=== PATIENT | male | born 1970 | race Caucasian/White ===

== ENCOUNTER 2016-11-17 14:32 | Observation (INO) ==
[2016-11-17] MEDS ORDERED: Ipratropium/Albuterol Neb 3 ML IH ONE ×2 (14:46→18:15)
[2016-11-17] MEDS ORDERED: Albuterol 2.5 MG/3 ML NEBULIZER IH ONE ×2 (14:46→18:15)
--- NOTE | 2016-11-17 14:50 | Emergency Department Note ---
Disposition Clinical Impression: COPD exacerbation Disposition: Admitted As Inpatient Condition: Good Referrals: NO,PCP [Non-Partnered Physician] - Forms: ED Satisfaction Letter Time of Disposition: 18:18 SOB HPI - General Chief Complaint: ED Shortness of Breath/Dyspnea Stated Complaint: chest tightness, can't breathe Time Seen by Provider: 11/17/16 14:40 Source: patient, other Mode of arrival: ambulatory Limitations: no limitations Nursing Notes Reviewed: Yes Vital Signs Reviewed: Yes - History of Present Illness 46-year-old white male who presents complaining of increased difficulty breathing. He states he has been having trouble for more than a month. He states he saw his physician about a month ago. He states 3 weeks ago his physician calling in a Z-Charles. He states he continues to cough. His cough is productive of white to greenish sputum. He intermittently has fever and chills , although he has not documented an elevated temperature. He denies chest pain. He has had persistent wheezing and shortness of breath, worse with exertion. His last nebulizer treatment was at 5:30 this morning. He does wear home oxygen at 3 L. He does continue to smoke. Pt Subjective Complaint: shortness of breath, cough Onset (ago): week(s) (4 weeks, worse for the last 3 weeks.) Context: recent illness Severity: moderate Consistency/Duration: constant Improves with: oxygen, rest, bronchodilators Worsens with: exertion, coughing Known history of: COPD Associated symptoms: Reports: fever (Subjective) Treatment prior to arrival: oxygen, bronchodilator Cough present: Yes Cough Description: Involuntary Cough Frequency: Intermittent Sputum production: Yes Sputum Color: White, Green - Related Data Home oxygen amount: 3 liters Home Medications Medication Instructions Recorded Confirmed Albuterol Neb [Proventil Neb] 2.5 mg IH Q4HR 06/12/15 11/17/16 Hydrocodon-Acetamin 7.5-325/15 1 tab PO TID 11/17/16 11/17/16 Losartan [Cozaar] 25 mg PO DAILY 11/17/16 11/17/16 Previous Rx's Medication Instructions Recorded Albuterol Sulfate [Proair 90 mcg IH Q4H PRN #1 aer.pow.ba 06/14/15 Respiclick] Alprazolam [Xanax] 0.5 mg PO BID PRN #20 tablet 06/14/15 Budesonide/Formoterol 160/4.5 2 puff IH BIDR 30 Days 06/14/15 [Symbicort] Allergies Allergy/AdvReac Type Severity Reaction Status Date / Time Penicillins Allergy unsure Verified 06/12/15 17:30 venom-honey bee Allergy Difficulty Verified 06/12/15 17:30 [bee venom (honey bee)] Breathing All systems ED: reviewed and negative except as stated. Constitutional: Reports: fever (Subjective), chills Eyes: Denies: eye discharge ENT ED: Reports: ear pain (Left). Denies: throat pain Cardiovascular: Denies: chest pain, palpitations Respiratory: Reports: cough, dyspnea, wheezes, sputum production Gastrointestinal: Denies: abdominal pain, nausea, vomiting, diarrhea Musculoskeletal: Denies: back pain Integumentary: Denies: rash Past Medical History - Past Medical History Medical history: Reports: asthma, COPD, hypertension, other Surgical history: Reports: appendectomy Psychiatric history: Reports: anxiety - Social History Smoking Status: Current every day smoker Smokeless Tobacco Status: Yes (chew) Alcohol use: Reports: occasionally Drug use: Reports: none Physical Exam - General Limitations: no limitations General appearance: alert, in distress (Mildly dyspneic) - Head Head exam: atraumatic, normocephalic - Eye Eye exam: Present: PERRL, EOMI. Absent: scleral icterus, conjunctival injection - ENT ENT exam: normal oropharynx, mucous membranes moist, other (Right TM is normal. Left TM is retracted and dull, not significantly red.) - Neck Neck exam: Present: normal inspection, full ROM, trachea midline. Absent: tenderness, lymphadenopathy - Chest Chest inspection: Present: normal inspection, symmetric chest wall rise - Respiratory Respiratory exam: Present: respiratory distress, wheezes (Mildly dyspneic moderate bilateral expiratory), prolonged expiratory phase, other (Decreased breath sounds in the bases bilaterally) - Cardiovascular Cardiovascular exam: Present: regular rate, normal rhythm, normal heart sounds - Abdominal Exam Abdominal exam: Present: soft, Non-Tender - Extremities Exam Extremities exam: Present: normal inspection, full ROM, normal capillary refill. Absent: pedal edema, calf tenderness - Neurological Exam Neurological exam: Present: alert, oriented X3, normal gait. Absent: motor sensory deficit - Psychiatric Psychiatric exam: Present: agitated - Skin Skin exam: Present: warm, dry, intact. Absent: cyanosis, diaphoresis Course - Reevaluation(s) Reevaluation #1: Patient states he feels slightly better. His exam is unchanged, moderate bilateral expiratory wheezing. He is maintaining O2 sats of 88-90% on 2 L. Time: 18:00 Reevaluation #2: Discussed with Dr. Quesada. He will admit. Time: 18:17 Vital Signs Temperature 98.7 F 11/17/16 14:34 Pulse Rate 93 11/17/16 14:34 Respiratory Rate 22 11/17/16 14:34 Blood Pressure 113/89 11/17/16 14:34 O2 Sat by Pulse Oximetry 72 L 11/17/16 14:34 Temperature 98.7 F 11/17/16 14:34 Pulse Rate 82 11/17/16 18:22 Respiratory Rate 28 11/17/16 18:22 Blood Pressure 162/104 11/17/16 18:22 O2 Sat by Pulse Oximetry 2 L 11/17/16 18:22 Oxygen Delivery Oxygen Delivery Nasal Cannula Shortness of Breath/Dyspnea - [facility] Narrative Medical decision making narrative: The primary issue is COPD exacerbation. There is no radiographic evidence of pneumonia. He does have some prominent pulmonary vasculature with an elevated BNP, I cannot rule out the possibility of a superimposed congestive heart failure. His EKG is unchanged from his previous EKG. His troponin is minimally elevated, but the repeat troponin is unchanged. He is not having chest pain. He has been having the same ongoing symptoms for at least 4 weeks. - Differential Diagnosis Likely: acute exacerbation of chronic obstructive airways disease, congestive heart failure, pneumonia, asthma with exacerbation, pulmonary embolism, pneumothorax, arrhythmia - Lab Data Result diagrams: 11/17/16 15:02 11/17/16 15:02 Lab Results 11/17/16 11/17/16 11/17/16 Range/Units 15:02 15:02 15:02 WBC 14.7 H (4.3-11.1) K/mcL RBC 4.98 (4.19-5.50) M/mcL Hgb 16.3 (12.9-16.9) g/dL Hct 49.1 (37.5-50.1) % MCV 98.6 (83.0-100.0) fL MCH 32.7 (28.0-33.3) pg MCHC 33.2 (31.6-35.5) g/dL RDW 14.9 H (11.5-14.5) % Plt Count 294 (140-400) K/mcL MPV 10.1 (9.4-12.4) fL Immature Gran % 0.8 (0-4) % Seg Neutrophils % 71.9 % Lymphocytes % 20.0 % Monocytes % 6.3 % Eosinophils % 0.5 % Basophils % 0.5 % Neutrophils # 10.6 H (1.6-8.9) K/mcL Lymphocytes # 2.9 (0.6-4.6) K/mcL Monocytes # 0.9 (0.0-1.3) K/mcL Eosinophils # 0.1 (0.0-0.6) K/mcL Basophils # 0.1 (0.0-0.2) K/mcL Platelet Estimate Normal (Normal) Sodium 129 L (136-145) mEq/L Potassium 4.9 H (3.5-4.5) mEq/L Chloride 88 L (98-109) mEq/L Carbon Dioxide 30 H (19-29) mEq/L BUN 9 (8-26) mg/dL Creatinine 0.82 (0.72-1.25) mg/dL Est GFR ( Amer) > 60 (> 60) Est GFR (Non-Af Amer) > 60 (> 60) BUN/Creatinine Ratio 11 (6-26) Glucose 106 H (70-99) mg/dL Calculated Osmolality 267 L (280-300) Calcium 8.9 (8.6-10.8) mg/dL Total Bilirubin 0.4 (0.2-1.2) mg/dL AST 30 (5-34) Units/L ALT 22 (0-55) Units/L Alkaline Phosphatase 70 (38-126) Units/L Troponin I 0.04 H* (0-0.03) ng/mL B-Natriuretic Peptide (0-100) pg/mL Serum Total Protein 6.6 (6.0-8.3) g/dL Albumin 3.1 L (3.5-5.0) g/dL Globulin 3.5 (2.4-3.5) g/dL Albumin/Globulin Ratio 0.9 L (1.1-2.2) 11/17/16 11/17/16 Range/Units 15:02 16:05 WBC (4.3-11.1) K/mcL RBC (4.19-5.50) M/mcL Hgb (12.9-16.9) g/dL Hct (37.5-50.1) % MCV (83.0-100.0) fL MCH (28.0-33.3) pg MCHC (31.6-35.5) g/dL RDW (11.5-14.5) % Plt Count (140-400) K/mcL MPV (9.4-12.4) fL Immature Gran % (0-4) % Seg Neutrophils % % Lymphocytes % % Monocytes % % Eosinophils % % Basophils % % Neutrophils # (1.6-8.9) K/mcL Lymphocytes # (0.6-4.6) K/mcL Monocytes # (0.0-1.3) K/mcL Eosinophils # (0.0-0.6) K/mcL Basophils # (0.0-0.2) K/mcL Platelet Estimate (Normal) Sodium (136-145) mEq/L Potassium (3.5-4.5) mEq/L Chloride (98-109) mEq/L Carbon Dioxide (19-29) mEq/L BUN (8-26) mg/dL Creatinine (0.72-1.25) mg/dL Est GFR ( Amer) (> 60) Est GFR (Non-Af Amer) (> 60) BUN/Creatinine Ratio (6-26) Glucose (70-99) mg/dL Calculated Osmolality (280-300) Calcium (8.6-10.8) mg/dL Total Bilirubin (0.2-1.2) mg/dL AST (5-34) Units/L ALT (0-55) Units/L Alkaline Phosphatase (38-126) Units/L Troponin I 0.04 H* (0-0.03) ng/mL B-Natriuretic Peptide 1215 H (0-100) pg/mL Serum Total Protein (6.0-8.3) g/dL Albumin (3.5-5.0) g/dL Globulin (2.4-3.5) g/dL Albumin/Globulin Ratio (1.1-2.2) - EKG Data EKG attestation: Yes I reviewed and interpreted this EKG. EKG results narrative: Sinus rhythm, rate of 93, left atrial enlargement, right ventricular hypertrophy. Nonspecific ST-T changes. Rhythm strip shows sinus rhythm with a rate of 93, CA interval 138 ms, a QRS of 93 ms with no other act as interpreted by me. This is compared to a tracing dated 06/12/15, no significant change. Critical Care Time Critical Care Time: Yes Total Critical Care Time: 30 Attestation: Critical care time includes my initial evaluation, reevaluation, review of laboratory, EKG, x-ray. It includes consultation with the hospital, reviewing writing admitting orders.
[2016-11-17 15:13] LABS: Basophils # 0.1 K/mcL (0.0-0.2); Basophils % 0.5 %; Eosinophils # 0.1 K/mcL (0.0-0.6); Eosinophils % 0.5 %; Hematocrit 49.1 % (37.5-50.1); Hemoglobin 16.3 g/dL (12.9-16.9); Immature Granulocytes % 0.8 % (0-4); Lymphocytes # 2.9 K/mcL (0.6-4.6); Mean Corpuscular HGB Conc 33.2 g/dL (31.6-35.5); Mean Corpuscular Hemoglobin 32.7 pg (28.0-33.3); Mean Corpuscular Volume 98.6 fL (83.0-100.0); Mean Platelet Volume 10.1 fL (9.4-12.4); Monocytes # 0.9 K/mcL (0.0-1.3); Monocytes % 6.3 %; Neutrophils # 10.6 K/mcL (1.6-8.9); Platelet Count 294 K/mcL (140-400); Red Blood Count 4.98 M/mcL (4.19-5.50); Red Cell Distribution Width 14.9 % (11.5-14.5); Segmented Neutrophils % 71.9 %
[2016-11-17 15:36] LABS: Alanine Aminotransferase 22 Units/L (0-55); Albumin 3.1 g/dL (3.5-5.0); Albumin/Globulin Ratio 0.9 (1.1-2.2); Alkaline Phosphatase 70 Units/L (38-126); Aspartate Amino Transferase 30 Units/L (5-34); BUN/Creatinine Ratio 11 (6-26); Bilirubin,Total 0.4 mg/dL (0.2-1.2); Blood Urea Nitrogen 9 mg/dL (8-26); Calcium 8.9 mg/dL (8.6-10.8); Carbon Dioxide 30 mEq/L (19-29); Chloride 88 mEq/L (98-109); Globulin 3.5 g/dL (2.4-3.5); Glucose 106 mg/dL (70-99); Osmolality,Calculated 267 (280-300); Potassium 4.9 mEq/L (3.5-4.5); Sodium 129 mEq/L (136-145); Total Protein 6.6 g/dL (6.0-8.3); eGFR For African Americans > 60 (> 60); eGFR For Non-African Americans > 60 (> 60)
[2016-11-17 15:44] LABS: Platelet Estimate Normal (Normal)
[2016-11-17] MEDS ORDERED: Furosemide 40 MG/4 ML VIAL IVP ONE (18:15)
[2016-11-17] MEDS ORDERED: Naloxone 0.4 MG/ML INJ IVP PRN (18:46)
[2016-11-17] MEDS ORDERED: Acetaminophen 325 MG TABLET PO PRN (18:46)
[2016-11-17] MEDS ORDERED: MethylPREDNISolone 40 MG/ML VIAL IVP SCH (18:46)
[2016-11-17] MEDS: Ipratropium/Albuterol Neb 3 ML IH SCH (20:20)
[2016-11-17] MEDS: *HR* HYDROcodone/Acet 7.5/325 mg TABLET PO SCH (21:40)
[2016-11-18] MEDS: Ipratropium/Albuterol Neb 3 ML IH SCH ×3 (01:27→08:38)
[2016-11-18] MEDS: *HR* Enoxaparin 40 MG/0.4 ML SYRINGE SQ SCH (06:24)
[2016-11-18] MEDS ORDERED: MethylPREDNISolone 40 MG/ML VIAL IVP SCH (07:00)
[2016-11-18] MEDS: *HR* HYDROcodone/Acet 7.5/325 mg TABLET PO SCH ×4 (09:14→21:03)
[2016-11-18] MEDS: Budesonide/Formoterol 160/4.5 MDI IH SCH ×2 (10:48→20:36)
--- NOTE | 2016-11-18 12:16 | Internal Med History&Physical ---
Date of Encounter: 11/18/16 Time of Encounter: 11:30 Assessment and Plan (1) COPD exacerbation Current visit: Yes Status: Acute He will be given Rocephin and Zithromax. Lactobacillus will also be used. I will give him prednisone and discontinue Solu-Medrol ordered through emergency room. (2) Diastolic heart failure Current visit: Yes Status: Chronic We will continue Cozaar. Qualifiers: Heart failure chronicity: chronic Qualified Code(s): I50.32 - Chronic diastolic (congestive) heart failure (3) Hyponatremia Current visit: Yes Status: Acute We will recheck labs in a.m. Internal Medicine - H&P: HPI Chief complaint: Cough and dyspnea Admitted From: Home Plans for Post Hospital Care: Home History of present illness: Mr. Finn is a 46 year old male who came to emergency room stating he had significant cough and dyspnea over the preceding 2-3 weeks. His cough was occasionally productive of green sputum. He states he developed some tightness in his chest. When he did not improve he came to emergency room. He was felt to have exacerbation of COPD and was admitted to [facility] floor for ongoing care needs. His respiratory history is significant for having smoked since age 9 up to 3 packs per day. He wears oxygen at home at bedtime and when necessary during the daytime. He had pulmonary function tests 11/08/2015 which showed severe obstructive impairment with FEV1/FVC 46% with minimal change postbronchodilator. His RV was 232% predicted. Past Med Surg Social Fam HX - Past Medical History Medical history: asthma, COPD, hypertension, other Psychiatric history: anxiety - Past Surgical History Surgical History: appendectomy - Social History Smoking Status: Current every day smoker Packs per day: 1 Smokeless Tobacco Status: Yes (chew) Alcohol use: occasionally Drug use: none - Family History Father Adopted: No Living Status: Hx Family Respiratory Disorders: Yes (Severe COPD, metastatic lung cancer) Hx Family Cancer: Yes (lung, liver, pancreatic) Mother Adopted: No Living Status: Hx Family Respiratory Disorders: Yes (COPD, unknown cancer) Hx Family Cancer: Yes (Lung) Internal Medicine - H&P: Meds Albuterol Neb [Proventil Neb] 2.5 mg IH Q4HR 06/12/15 [History] Albuterol Sulfate [Proair Respiclick] 90 mcg IH Q4H PRN #1 aer.pow.ba 06/14/15 [ Rx] Alprazolam [Xanax] 0.5 mg PO BID PRN #20 tablet 06/14/15 [Rx] Budesonide/Formoterol 160/4.5 [Symbicort] 2 puff IH BIDR 30 Days 06/14/15 [Rx] Hydrocodon-Acetamin 7.5-325/15 1 tab PO TID 11/17/16 [History] Losartan [Cozaar] 25 mg PO DAILY 11/17/16 [History] Allergies Penicillins Allergy (Verified 06/12/15 17:30) unsure venom-honey bee [bee venom (honey bee)] Allergy (Verified 06/12/15 17:30) Difficulty Breathing All Systems PM: A 10-system review of systems was performed and is negative for pertinent findings except as documented above in the HPI. Review of systems: Gen.: His weight has been stable the past few months Cardiovascular: He has history of hypertension. An echocardiogram 06/13/2015 showed LVEF of 60%. There was mild diastolic dysfunction reported. No significant valvular abnormalities were seen. Denies DVT pulmonary embolus or NH. Respiratory: As per history of present illness GI: Denies disorders of his liver gallbladder exocrine pancreas : He denies hematuria or dysuria or kidney stones Neurologic: He denies large distribution strokes or seizures Endocrine: He denies diabetes thyroid disease or hyperlipidemia Hematology/oncology: Denies blood disorders or cancers or anemia Psychiatric: He has anxiety and depression but denies other mental health issues Musk skeletal: he has occasional muscle cramps but denies other bone joint or muscle disorders. - Constitutional Vitals: Temp Pulse Resp BP Pulse Ox 98.3 F 87 18 132/81 90 L 11/18/16 11:23 11/18/16 11:23 11/18/16 11:23 11/18/16 11:23 11/18/16 11:23 Exam: Gen.: He is a well-developed well-nourished male who appears dyspneic HEENT: Head is atraumatic and normocephalic. Eyes: EOMI. There is no scleral icterus. Mouth: Mucosa is moist. Neck: Supple and nontender. There is no thyromegaly or adenopathy noted. Heart: Regular without murmurs gallops or ectopics. Lungs: No wheezes or crackles are heard. No egophony is heard. Abdomen: Soft and nontender. No masses or guarding are noted. Extremities: There is no cyanosis edema or clubbing noted. Dorsalis pedis and posterior tibial pulses are 1-2 over 2 bilaterally. Neurologic: Mental status: He is talkative and seems to be a good historian. Cranial nerves: Smile is symmetric. Forehead wrinkles bilaterally. Tongue protrudes midline. EOMI. Motor: There is no pronator drift. Cerebellar: Finger to nose intact bilaterally. Skin: Warm and dry Internal Med - H&P Results - Labs CBC & Chem 7: 11/17/16 15:02 11/17/16 15:02 Labs: Cardiac Enzymes 11/17/16 11/18/16 Range/Units 23:15 05:30 Troponin I 0.06 H* 0.05 H* (0-0.03) ng/mL
[2016-11-18] MEDS: Albuterol 2.5 MG/3 ML NEBULIZER IH PRN ×2 (13:23→20:36)
[2016-11-18] MEDS: CefTRIAXone 1,000 MG in D5% in Water (Mini-Bag+) 100 ML IVPB SCH (13:44)
[2016-11-18] MEDS: Azithromycin 500 MG in D5% in Water 250 ML IVPB SCH (13:54)
[2016-11-18] MEDS: PredniSONE 10 MG TABLET PO SCH (17:16)
--- NOTE | 2016-11-18 20:28 | Electrocardiograph Report ---
[address] [place], [place] [address] Test Date: 2016-11-17 Pat Name: Tobias Finn Department: [id number] Room: [facility] Gender: M [employer] Quality [employer]: : [id number] Requested By: Tuan Mendoza Order Number: [id number] Reading MD: Aaron Wilkerson DO Measurements Intervals [place] Rate: 93 P: 80 CO: 138 QRS: 110 QRSD: 93 T: -7 QT: 335 QTc: 386 Interpretive Statements SINUS RHYTHM POSSIBLE LEFT ATRIAL ENLARGEMENT ANTEROSEPTAL ST-T CHANGES POSSIBLY DUE TO ISCHEMIA Electronically Signed On 11-18-2016 20:26:52 EST by Aaron Wilkerson DO
[2016-11-19] MEDS: *HR* Enoxaparin 40 MG/0.4 ML SYRINGE SQ SCH (05:34)
[2016-11-19 06:17] LABS: BUN/Creatinine Ratio 13 (6-26); Blood Urea Nitrogen 10 mg/dL (8-26); Calcium 8.4 mg/dL (8.6-10.8); Carbon Dioxide 34 mEq/L (19-29); Chloride 90 mEq/L (98-109); Glucose 112 mg/dL (70-99); Osmolality,Calculated 280 (280-300); Potassium 4.3 mEq/L (3.5-4.5); Sodium 135 mEq/L (136-145); eGFR For African Americans > 60 (> 60); eGFR For Non-African Americans > 60 (> 60)
[2016-11-19 06:48] LABS: Basophils % 0.2 %; Hemoglobin 15.8 g/dL (12.9-16.9); Immature Granulocytes % 0.8 % (0-4); Lymphocytes # 2.7 K/mcL (0.6-4.6); Lymphocytes % 12.3 %; Mean Corpuscular HGB Conc 32.9 g/dL (31.6-35.5); Mean Corpuscular Hemoglobin 32.2 pg (28.0-33.3); Mean Platelet Volume 10.6 fL (9.4-12.4); Monocytes # 1.5 K/mcL (0.0-1.3); Monocytes % 6.7 %; Neutrophils # 17.8 K/mcL (1.6-8.9); Platelet Count 292 K/mcL (140-400)
[2016-11-19] MEDS: CefTRIAXone 1,000 MG in D5% in Water (Mini-Bag+) 100 ML IVPB SCH (08:56)
[2016-11-19] MEDS: PredniSONE 10 MG TABLET PO SCH (08:56)
[2016-11-19] MEDS: *HR* HYDROcodone/Acet 7.5/325 mg TABLET PO SCH ×2 (08:56→12:29)
[2016-11-19] MEDS: Albuterol 2.5 MG/3 ML NEBULIZER IH PRN (09:48)
[2016-11-19] MEDS: Budesonide/Formoterol 160/4.5 MDI IH SCH (09:49)
[2016-11-19 10:57] VITALS: BP 129/84
--- NOTE | 2016-11-19 11:31 | Discharge Summary ---
Date of Encounter: 11/19/16 Time of Encounter: 11:15 - Discharge Diagnosis (1) COPD exacerbation Priority: Primary Status: Acute (2) Nodule of left lung Priority: Secondary Status: Acute (3) Diastolic heart failure Priority: Secondary Status: Chronic Qualifiers: Heart failure chronicity: chronic Qualified Code(s): I50.32 - Chronic diastolic (congestive) heart failure (4) Hyponatremia Priority: Secondary Status: Suspected - Discharge Medications Prescriptions: Cefuroxime PO [Ceftin] 500 mg PO Q12HR #6 tablet Azithromycin [Zithromax] 250 mg PO Q24H #3 tablet Lactobacillus [Culturelle] 1 each PO BID #6 cap.sprink Losartan Potassium [Cozaar] 50 mg PO DAILY #30 tab Home Medications: Albuterol Neb [Proventil Neb] 2.5 mg IH Q4HR 06/12/15 [History] Albuterol Sulfate [Proair Respiclick] 90 mcg IH Q4H PRN #1 aer.pow.ba 06/14/15 [ Rx] Alprazolam [Xanax] 0.5 mg PO BID PRN #20 tablet 06/14/15 [Rx] Budesonide/Formoterol 160/4.5 [Symbicort] 2 puff IH BIDR 30 Days 06/14/15 [Rx] Hydrocodon-Acetamin 7.5-325/15 1 tab PO TID 11/17/16 [History] Azithromycin [Zithromax] 250 mg PO Q24H #3 tablet 11/19/16 [Rx] Cefuroxime PO [Ceftin] 500 mg PO Q12HR #6 tablet 11/19/16 [Rx] Lactobacillus [Culturelle] 1 each PO BID #6 cap.sprink 11/19/16 [Rx] Losartan Potassium [Cozaar] 50 mg PO DAILY #30 tab 11/19/16 [Rx] Allergies/Adverse Reactions: Allergies Penicillins Allergy (Verified 06/12/15 17:30) unsure venom-honey bee [bee venom (honey bee)] Allergy (Verified 06/12/15 17:30) Difficulty Breathing Procedures/tests Complete & Pending: Procedures Performed prior 72 hours Category Date Time Status CT chest wo con [CT] Routine Cat Scan 11/18/16 12:29 Completed Date of admission: 11/17/16 18:39 Primary care physician: Esperanza Carbajal CNP - Patient Status Disposition: Home, Self-Care Condition: Good Overall status at discharge: patient is progressing back to baseline - Discharge Instructions Follow Up With: Esperanza Carbajal CNP [Primary Care Provider] - 1 week - Diet and Activity Activity: resume usual activities as tolerated, wear oxygen at all times Diet: advance to your usual diet Hospital course: Mr. Finn is a 46 year old male who came to emergency room stating he had significant cough and dyspnea over the preceding 2-3 weeks. His cough was occasionally productive of green sputum. He states he developed some tightness in his chest. When he did not improve he came to emergency room. He was felt to have exacerbation of COPD and was admitted to [facility] floor for ongoing care needs. Initial orders were written by the emergency room physician. I saw him on November 18 and performed the history and physical. He was started on Rocephin and Zithromax through emergency room. I added lactobacillus. Wheezing had resolved by November 19. WBC and risen to 22.3 K but I felt this was due in part to the steroid effect. He he maintained afebrile during the hospital stay. He will be discharged home with 3 additional days of antibiotic and probiotic with a diagnosis of bronchitis and exacerbation of COPD. CT of the chest was done the afternoon of November 18. No obvious infiltrate was seen. There was however a 9 mm nodule in the left upper lung area. Malignancy could not be excluded. A follow-up CT was recommended in 3 months. Alternatively the patient could be referred for bronchoscopy or additional scans etc. I will let Esperanza Carbajal discuss further diagnostic and treatment plans with the patient. His hyponatremia resolved with sodium 135 on the day of discharge. His Cozaar was increased to 50 mg daily and his blood pressure improved. BNP peptide improved to361. On November 19 I felt he was stable for discharge home. He will follow with Esperanza Carbajal CNP within 1 week. I strongly encouraged him to discontinue smoking. He has oxygen at home already. - Time Spent with Patient Total time spent providing and/or coordinating discharge services: - Constitutional Vitals: Temp Pulse Resp BP Pulse Ox 97.9 F 94 18 129/84 91 L 11/19/16 10:51 11/19/16 10:51 11/19/16 10:51 11/19/16 10:51 11/19/16 10:51
[2016-11-19] MEDS: Azithromycin 500 MG in D5% in Water 250 ML IVPB SCH (13:02)
== END 2016-11-19 13:48 | disposition home or self-care (01) ==
LOC: INPPIK 14:32 → EMEROOPIK 14:32 → INPPIK 19:30
PROVIDERS: ADMIT Internal Medicine; ATTEND Internal Medicine